=== PATIENT | male | born 1965 | race Caucasian/White ===

== ENCOUNTER 2020-08-05 05:44 | Inpatient (IN) ==
--- NOTE | 2020-07-19 12:06 | PAT Medication Instructions ---
Medication Instructions Date of Service July 19, 2020 Home Medications cholecalciferol (vitamin D3) [Vitamin D3] 25 mcg PO QAM empagliflozin [Jardiance] 25 mg PO QAM fluticasone propionate 1 spray INTRANASAL BID PRN losartan 25 mg PO QAM semaglutide [Ozempic] 1 mg SUBCUT WK tamsulosin 0.4 mg PO BID testosterone cypionate 200 mg IM DIRECTED Continue as directed testosterone cypionate 200 mg IM DIRECTED (unless surgeon directs otherwise) semaglutide [Ozempic] 1 mg SUBCUT WK (just do not take on morning of surgery) DO NOT take the morning of surgery cholecalciferol (vitamin D3) [Vitamin D3] 25 mcg PO QAM empagliflozin [Jardiance] 25 mg PO QAM losartan 25 mg PO QAM Take morning of surgery With a small sip of water, OTHERWISE NOTHING TO EAT OR DRINK AFTER MIDNIGHT: fluticasone propionate 1 spray INTRANASAL BID PRN (if needed) tamsulosin 0.4 mg PO BID Take evening before surgery fluticasone propionate 1 spray INTRANASAL BID PRN (if needed) tamsulosin 0.4 mg PO BID Other Notes If you have any questions please call us at [phone] or [phone] or [phone] or [phone]
--- NOTE | 2020-07-21 10:50 | Anesthesiology Consultation ---
Date of Service July 21, 2020 Assessment & Plan (1) Encounter for pre-operative examination: Chart Review Chart Review: Acceptable Risk for Surgery (pending possible cardiac testing and preop Covid testing results ) and Patient seen in Pre Admission Testing Attempting to get possible cardiac testing- faxed for stress test, ECHO at [facility] appt - Check BSG AM DOS Per [facility] appointment 07/21/2020, patient denies any recent travel. No known Covid infection in the past 90 days. No known Covid positive contacts or Covid related symptoms. Preop Covid testing 08/03/20= will await results. Educated on importance of self quarantining, social distancing and wearing mask in public both for the patient and household contacts.Pt fully vaccinated- Moderna. Teaching & Discussion Pre-Anesthesia Teaching/Discussion Notes: Instructed NPO after midnight before surgery,except medications with 15 cc of water. Medication instructions provided according to the [facility] guidelines. History Surgery Operation Date: 08/05/20 10:05 Proposed Procedures p L4-L5 and L6-S1 Decompression Fusion, L5-S1 Hardware Removal, *Spinal Cord Monitoring* - Martinez Mack, Height/Weight Height: 5 ft 11 in Weight: 134.3 kg Allergies Allergy/AdvReac Type Severity Reaction Status Date / Time adhesive Allergy Severe Blister Verified 07/05/20 10:08 hydrocodone AdvReac Intermediate Gastrointestinal Verified 07/05/20 10:07 Upset Medications Home Medications Medication Instructions Recorded Confirmed Last Taken cholecalciferol (vitamin D3) 25 mcg PO QAM 07/05/20 07/05/20 Unknown [Vitamin D3] empagliflozin [Jardiance] 25 mg PO QAM 07/05/20 07/05/20 Unknown fluticasone propionate 1 spray INTRANASAL BID PRN 07/05/20 07/05/20 Unknown losartan 25 mg PO QAM 07/05/20 07/05/20 Unknown semaglutide [Ozempic] 1 mg SUBCUT WK 07/05/20 07/05/20 Unknown tamsulosin 0.4 mg PO BID 07/05/20 07/05/20 Unknown testosterone cypionate 200 mg IM DIRECTED 07/05/20 07/05/20 Unknown Past Medical History Medical History BPH (benign prostatic hyperplasia) Degenerative disc disease Diabetes mellitus, type 2 Glucose well controlled Hay fever In the fall Season allergies in the spring as well IBS (irritable bowel syndrome) Diarrhea - stable with probiotic Kidney disease Losartan for this to protect kidneys from damage due to diabetes per pt Osteoarthritis Sleep apnea cpap Slow to wake up after anesthesia Exercise / Class Metabolic Activity II 4-5 Yardwork/Stairs/Walk up hill (one flight of stairs - no chest pain or SOB - does have low back pain ) Past Family History Family History Other Diabetes Past Surgical History Surgical History Fusion of spine cervical x1 ROM WNL > lumbar x1 H/O umbilical hernia repair History of appendectomy History of arthroscopy x2 left knee History of cholecystectomy History of colonoscopy History of esophagogastroduodenoscopy (EGD) History of lumbar laminectomy History of repair of hiatal hernia x2 History of repair of rotator cuff bilat History of tonsillectomy Hx of endoscopic sinus surgery S/P uvulopalatopharyngoplasty Past Anesthesia History No Hx of Anesthesia Complications (with exception to one episode of slow to wake with lumbar laminectomy - no hx of reintbuation or ICU stay ) and No Family Hx of Anesthesia Complications History of PONV No Hx of PONV and No Hx of Motion Sickness Social History Smoking Status: Former smoker Do You Dip or Chew Tobacco: No Smoking End Date: over 20 yrs ago Hx Alcohol Use: Yes Alcohol type: beer alcohol intake frequency: a few times a month Hx Substance Use: No substance use type: does not use Review of Systems Patient denies chest pain, shortness of breath, dyspnea on exertion, reflux, cough, wheezing, palpitations. No hx of seizures, stroke, HI. No hx of blood clots or blood transfusions Physical Exam Vital Signs VITALS BP 116/73 P 78 TEMP 97.9 SP02 96% RESP 16 Constitutional no acute distress ENMT Mouth: no TMJ clicking Thyromental Distance: > or= 3.5 Finger Breadths Mallampati Class: I (smaller airway ) Neck + short neck (significant ), + thick neck (significant ) and + limited neck extension (signfiicant ) Respiratory normal respiratory effort; no respiratory distress Auscultation: lungs clear to auscultation bilaterally; no wheezes Cardiovascular Rate/Rhythm: regular rate and regular rhythm Heart Sounds: no murmur Vessels: no carotid bruit Musculoskeletal Spine: no pain with cervical ROM Extremities: extremities normal to inspection Psychiatric Orientation: alert Testing Laboratory Results 07/21/20 11:15 07/21/20 11:15 PT 10.3 Seconds (9.0-12.0) 07/21/20 11:15 INR 1.0 (0.9-1.1) 07/21/20 11:15 APTT 26.6 Seconds (21.0-31.0) 07/21/20 11:15 Hemoglobin A1c 6.9 % (4.5-5.6) H 07/21/20 11:15 Urine Color Yellow 07/21/20 11:15 Urine Appearance Clear (Clear) 07/21/20 11:15 Urine pH 7.5 (4.5-7.5) 07/21/20 11:15 Ur Specific Slaughters 1.013 (1.000-1.030) 07/21/20 11:15 Urine Protein Negative (Negative) 07/21/20 11:15 Urine Glucose (UA) 3+ (Negative) H 07/21/20 11:15 Urine Ketones Negative (Negative) 07/21/20 11:15 Urine Nitrite Negative (Negative) 07/21/20 11:15 Ur Leukocyte Esterase Negative (Negative) 07/21/20 11:15 Urine WBC (Auto) 1-5 /hpf (0-5) 07/21/20 11:15 Urine RBC (Auto) 0-4 /hpf (0-4) 07/21/20 11:15 U Hyaline Cast (Auto) 0 /lpf (0-5) 07/21/20 11:15 U Epithel Cells (Auto) 0-5 /lpf (0-5) 07/21/20 11:15 Urine Bacteria (Auto) Negative (Negative) 07/21/20 11:15 Blood Type O Positive 07/21/20 11:15 Antibody Screen NEGATIVE 07/21/20 11:15 Electrocardiogram Date: 07/21/20 Findings: + NSR @ (76bpm) Left axis deviation. Chest X-Ray Date: 07/21/20 Findings: + NAD Mild interstitial thickening which is likely chronic.
[2020-07-21 11:51] LABS: Basophils # (auto) 0.07 K/uL (0-0.2); Eosinophils # (auto) 0.42 K/uL (0-0.5); Eosinophils % (auto) 5.7 %; Hematocrit (blood only) 48.9 % (42-52); Hemoglobin 17.6 g/dL (14.0-18.0); Immature Granulocytes # (auto) 0.02 K/uL (0.00-0.02); Immature Granulocytes % (auto) 0.3 %; Lymphocytes # (auto) 2.53 K/uL (1.2-3.4); Lymphocytes % (auto) 34.5 %; Mean Corpuscular Hemoglobin 31.2 pg (25-34); Mean Corpuscular Volume 86.5 fL (80-100); Mean Platelet Volume 11.2 fL (7.4-10.4); Monocytes # (auto) 0.81 K/uL (0.11-0.59); Monocytes % (auto) 11.1 %; Neutrophils # (auto) 3.48 K/uL (1.4-6.5); Neutrophils % (auto) 47.4 %; Platelet Count 214 K/uL (130-400); RDW Coefficient of Variation 13.9 % (11.5-14.5); RDW Standard Deviation 43.8 fL (36.4-46.3); Red Blood Count 5.65 M/uL (4.7-6.1); White Blood Count 7.33 K/uL (4.8-10.8)
--- NOTE | 2020-07-21 11:51 | XRay Report ---
XR chest Pre-admission PA/Lat HISTORY: Neck pain. Preop. COMPARISON: None. FINDINGS: Cervical spinal fusion hardware is noted. The heart is normal in size. No pleural effusions . No pneumothorax. Mild interstitial thickening which is likely chronic. Otherwise, no focal lung con solidations to suggest pneumonia. IMPRESSION: No acute process. ACT 112: Negative or not required by law. Electronically signed by: Yung Lara M.D. 07/21/2020 11:49 AM
[2020-07-21 12:02] LABS: BUN Creatinine Ratio 13.2 (10-20); Calcium 8.8 mg/dl (8.5-10.1); Creatinine Clr Calc Pharmacy 140.8 ml/min; Est GFR (African American) 114.3 ml/min; Est GFR (Non-African American) 98.7 ml/min; Potassium 3.5 mmol/L (3.5-5.1)
[2020-07-21 12:10] LABS: Partial Thromboplastin Time 26.6 Seconds (21.0-31.0); Prothrombin Time 10.3 Seconds (9.0-12.0)
[2020-07-21 12:16] LABS: Appearance Urine Clear (Clear); Bacteria Urine Automated Negative (Negative); Bilirubin Urine Negative (Negative); Blood Urine Trace (Negative); Cast Urine Automated 0 /lpf (0-5); Color Urine Yellow; Epithelial Cell Urine Auto 0-5 /lpf (0-5); Glucose Urine UA 3+ (Negative); Ketones Urine Negative (Negative); Leukocyte Esterase Urine Negative (Negative); Nitrite Urine Negative (Negative); Protein Urine Negative (Negative); RBC Urine Automated 0-4 /hpf (0-4); Specific Gravity Urine 1.013 (1.000-1.030); Urobilinogen Urine Negative (Negative); pH Urine 7.5 (4.5-7.5)
[2020-07-21 12:58] LABS: Estimated Average Glucose 151 mg/dl; Hemoglobin A1C 6.9 % (4.5-5.6)
--- NOTE | 2020-07-21 18:41 | Electrocardiogram Report ---
Test Reason : Blood Pressure : / mmHG Vent. Rate : 076 BPM Atrial Rate : 076 BPM P-R Int : 182 ms QRS Dur : 110 ms QT Int : 408 ms P-R-T Axes : 053 -40 029 degrees QTc Int : 459 ms Normal sinus rhythm Left axis deviation Abnormal ECG When compared with ECG of 08-AUG-2009 16:12, QT has lengthened Confirmed by Aram Vizcarra ([id number]) on 07/21/2020 6:41:05 PM Referred By: Martinez Mack Confirmed By:Jose Vizcarra
[2020-08-05] MEDS ORDERED: LR 15ML/HR IV SCH (06:00)
[2020-08-05] MEDS ORDERED: GABAPENTIN 600 MG DOSE PO SCH (06:00)
[2020-08-05] MEDS ORDERED: ACETAMINOPHEN 500 MG TAB PO SCH (06:00)
[2020-08-05] MEDS ORDERED: CeleBREX 200 MG CAP PO SCH (06:00)
[2020-08-05] MEDS ORDERED: BUPIVACAINE/EPINEPHRINE 0.5% MPF 1:200,000 30 ML VIAL ONE (07:11)
[2020-08-05] MEDS ORDERED: fentaNYL citrate 100 MCG/2 ML VIAL ONE (07:21)
[2020-08-05] MEDS ORDERED: MIDAZOLAM HCL 1 MG/ML 2ML VIAL ONE (07:21)
--- NOTE | 2020-08-05 07:34 | History & Physical Bridge Note ---
Date of Service August 05, 2020 History & Physical Bridge Note I have examined the patient, reviewed the History & Physical and in the interval since the performance of the History & Physical I have noted the following changes of clinical significance: no changes noted
--- NOTE | 2020-08-05 07:35 | History & Physical Report ---
Date of Service August 05, 2020 Assessment & Plan (1) Neurogenic claudication due to lumbar spinal stenosis: Admission and Anticipated Discharge Date Admission Date: L4-L5 decompression fusion, L5-S1 hardware removal History of Present Illness Chief Complaint: Back and leg pain Primary Care Provider: Aram Church DO This is a 55-year-old male presents with chronic persistent back and leg pain. Failing course of nonoperative care is here for surgical invention. Allergies Allergy/AdvReac Type Severity Reaction Status Date / Time adhesive Allergy Severe Blister Verified 08/05/20 06:18 hydrocodone AdvReac Intermediate Gastrointestinal Verified 08/05/20 06:18 Upset Home Medications Medication Instructions Recorded Confirmed Type cholecalciferol (vitamin D3) 25 mcg PO QAM 07/05/20 08/05/20 History [Vitamin D3] empagliflozin [Jardiance] 25 mg PO QAM 07/05/20 08/05/20 History fluticasone propionate 1 spray INTRANASAL BID PRN 07/05/20 08/05/20 History losartan 25 mg PO QAM 07/05/20 08/05/20 History semaglutide [Ozempic] 1 mg SUBCUT WK 07/05/20 08/05/20 History tamsulosin 0.4 mg PO BID 07/05/20 08/05/20 History testosterone cypionate 200 mg IM DIRECTED 07/05/20 08/05/20 History acetaminophen [Tylenol Ex Str 1,000 mg PO Q6H PRN 08/05/20 08/05/20 History Rapid Release] Past Med/Surg History Medical History BPH (benign prostatic hyperplasia) Degenerative disc disease Diabetes mellitus, type 2 Glucose well controlled Hay fever In the fall Season allergies in the spring as well IBS (irritable bowel syndrome) Diarrhea - stable with probiotic Kidney disease Losartan for this to protect kidneys from damage due to diabetes per pt Osteoarthritis Sleep apnea cpap Slow to wake up after anesthesia Surgical History Fusion of spine cervical x1 ROM WNL > lumbar x1 H/O umbilical hernia repair History of appendectomy History of arthroscopy x2 left knee History of cholecystectomy History of colonoscopy History of esophagogastroduodenoscopy (EGD) History of lumbar laminectomy History of repair of hiatal hernia x2 History of repair of rotator cuff bilat History of tonsillectomy Hx of endoscopic sinus surgery S/P uvulopalatopharyngoplasty Family History Other Diabetes Social History Smoking Status: Former smoker Smoking End Date: over 20 yrs ago; Second Hand Exposure: No; Do You Dip or Chew Tobacco: No; Tobacco Cessation Education Requested by Patient: No Hx Alcohol Use: Yes Alcohol type: beer Hx Substance Use: No Preferred Language: Citizen Of [place] Communication Ability: Effective Operations Accountant Required: No Beliefs That Will Affect Care: None Current Living Situation: Spouse Other Information That Helps Us Care for You: No Feels Safe at Home: Yes Safety Concerns: Afraid for Self Assistive Devices: Glasses Physical Exam Physical Exam: Patient is alert and oriented Heart regular in rhythm Lungs clear to auscultation Results & Data ([facility]) Vital Signs (Past 12 Hours) Vital Signs Temp Pulse Resp BP Pulse Ox 08/05/20 06:24 36.8 C 97 H 20 134/80 97
[2020-08-05] MEDS ORDERED: FAMOTIDINE/PF 20 MG/2 ML VIAL IV ONE (07:42)
[2020-08-05] MEDS ORDERED: KETAMINE 50 MG/5 ML SYRINGE ONE (08:17)
[2020-08-05] MEDS ORDERED: HYDROmorphone INJ 2 MG/ML SYR/VIAL ONE (08:28)
[2020-08-05] MEDS ORDERED: HYDROmorphone INJ 1 MG/ML SYRINGE IV PRN ×2 (09:16→12:11)
[2020-08-05] MEDS ORDERED: ATROPINE SULFATE 0.1 MG/ML 10ML SYR IV PRN (09:16)
[2020-08-05] MEDS ORDERED: ONDANSETRON INJ 2 MG/ML 2 ML VIAL IV PRN ×2 (09:16→12:11)
[2020-08-05] MEDS ORDERED: fentaNYL citrate 100 MCG/2 ML VIAL IV PRN (09:16)
[2020-08-05] MEDS ORDERED: ePHEDrine sulfate 50 MG/ML AMP IV PRN (09:16)
[2020-08-05] MEDS ORDERED: PROPOFOL IV EMULSION 10 MG/ML 20 ML VIAL IV ONE (10:10)
[2020-08-05] MEDS ORDERED: SUCCINYLCHOLINE CHLORIDE 20 MG/ML 10 ML VIAL IV ONE (10:10)
[2020-08-05] MEDS ORDERED: ONDANSETRON INJ 2 MG/ML 2 ML VIAL ONE (10:10)
[2020-08-05] MEDS ORDERED: ROCURONIUM BROMIDE 10 MG/ML 5 ML VIAL IV ONE (10:10)
[2020-08-05] MEDS ORDERED: DEXAMETHASONE SOD INJ 4 MG/ML VIAL ONE ×2 (10:10)
[2020-08-05] MEDS ORDERED: LIDOCAINE 2% 2 ML VIAL/AMP(20MG/ML) INFIL ONE (10:10)
[2020-08-05] MEDS ORDERED: FLOSEAL HEMOSTATIC MATRIX 10ML TOP ONE (10:11)
--- NOTE | 2020-08-05 10:24 | Operative Report ---
Post Operative Report Pre & Post Diagnosis Operation Date: 08/05/20 07:45 Pre-Op Diagnosis: Neurogenic Claudication due to Lumbar Spinal Stenosis Morbid obesity Post-Op Diagnosis: Neurogenic Claudication due to Lumbar Spinal Stenosis Morbid obesity I identified the patient and participated in the time-out.: Yes Procedure Operation Date: 08/05/20 07:45 Actual Procedures #1 removal of instrumentation L5-L6. #2 exploration of fusion L5-L6 L6-S1. #3 revision decompression with medial facetectomies and foraminotomies L4-L5. #4 posterior spinal fusion L4-L5. #5 placement posterior instrumentation L4-L5. #6 interbody fusion L4-L5. #7 placement of peek cage 14 x 26 mm at L4-L5. #8 placement locally harvested morselized autograft in the posterior lateral gutters. #9 placement infuse collagen sponge and master graft in the posterior lateral gutters and I factor interbody space. Surgeon Martinez Mack, DO Tallier Igor Miller Estimated Blood Loss 350 Findings See Below The patient is 5 foot 11 inches tall weighing over 133 kg with a BMI of 41. Patient's body habitus did contribute to significant technical difficulty requiring her to place retractors longus instruments in order to perform his procedure. This had at least 50% increase to the operative time. Specimens None Indications This is a 55-year-old male presents with above-mentioned diagnosis after failing course of nonoperative care is here for the above-mentioned procedure. Description of Procedure Patient was met with identified informed consent obtained. Patient was then taken to the operative suite underwent a patient placed in a prone position the Saad table on top of the Jaden frame. All bony prominences well-padded eyes inspected to ensure no external pressure placed upon the. This point the lumbar spine was prepped and draped in a sterile fashion. Sharp dissection with the assistance of Bovie cautery was performed down to and exposing the remaining lamina and transverse processes of L4 and instrumentation at L5 and L6. I then proceeded move the hardware bilaterally explore the fusion mass at L5-L6 L6-S1 noting it to be mature and intact no evidence of motion. Then performed a revision complete facetectomy L4-5 on the with foraminotomies addressing severe neural encroachment. Pedicle screws then placed in L 4 L5 bilaterally with assistance of fluoroscopy the proper sized chalino placed. By the transforaminal approach and left complete discectomy was performed endplates curetted to subcortical being bone and a 14 x 26 mm peek cage filled with I factor tapped in position. The rods were locked in final position bilaterally. The transverse processes of L4 and L5 burred to subcortical bleeding bone. Infuse collagen sponge master graft local autograft was placed in the posterior gutters. 15 round LAVINIA drain inserted. The incision was then closed with 1 Vicryl in the fascia 2-0 Vicryl subcutaneously and 4 Monocryl for final skin closure. Steri- Strip sterile dressings placed. Patient will continue PACU stable condition. Please note spinal cord monitoring was utilized at the procedure no changes noted. An [place] record was present at the entire surgery involved the patient positioning complex portions of the surgery and final skin closure. I attest to the content of the Intraoperative Record and any orders documented therein. Any exceptions are noted below.
--- NOTE | 2020-08-05 10:27 | Fluoroscopy Report ---
FL lumbar spine 2-3V CLINICAL HISTORY: L5-S1 REMOVE HDWARE/L4-S1 DECOMPRESSION/FUSION/INTERBODY COMPARISON STUDY: None. FLUOROSCOPY TIME: 15 second. FINDINGS: 2 fluoroscopic spot images of the lower lumbar spine demonstrate posterior decompression an d fusion at L4-L5 with pedicle screws and rods. Hardware appears intact. Possible S1 transitional michael tebra. However, this is suboptimally assessed on this limited fluoroscopic spot imaging. IMPRESSION: Fluoroscopy provided for posterior decompression fusion at the expected L4-5 level. ACT 112: Negative or not required by law. Electronically signed by: Yung Lara M.D. 08/05/2020 10:25 AM
[2020-08-05] MEDS ORDERED: NALOXONE HCL 0.4 MG/1 ML VIAL/CARP IV PRN (12:11)
[2020-08-05] MEDS ORDERED: ALUMINUM/MAGNESIUM SUSP 30 ML UDC PO PRN (12:11)
[2020-08-05] MEDS ORDERED: traMADol HCL 50 MG TABLET PO PRN (12:11)
[2020-08-05] MEDS ORDERED: diphenhydrAMINE Capsule 25 MG CAP PO PRN (12:11)
[2020-08-05] MEDS ORDERED: DO NOT ADMINISTER FLU VACCINE PRN (12:11)
[2020-08-05] MEDS ORDERED: SOD PHOSPHATE/SOD BIPHOSPHATE ENEMA 132 ML BTL PR PRN (12:11)
[2020-08-05] MEDS ORDERED: hydrOXYzine HCl 25 MG TAB PO PRN (12:11)
[2020-08-05] MEDS ORDERED: ACETAMINOPHEN 500 MG TAB PO PRN (12:11)
[2020-08-05] MEDS ORDERED: LORazepam 0.5 MG TAB PO PRN (12:11)
[2020-08-05] MEDS ORDERED: ONDANSETRON 4 MG OD TAB PO PRN (12:11)
[2020-08-05] MEDS ORDERED: FAMOTIDINE 20 MG TAB PO PRN (12:11)
[2020-08-05] MEDS ORDERED: PROMETHAZINE HCL 12.5 MG in SODIUM CHLORIDE 0.9% 50 ML IV PRN (12:11)
[2020-08-05] MEDS ORDERED: DO NOT ADMINISTER PNEUMOCOCCAL VACCINE PRN (12:11)
[2020-08-05] MEDS ORDERED: FLUTICASONE PROPIONATE NA SPR 16 GM BTL PRN (12:11)
[2020-08-05] MEDS ORDERED: MAGNESIUM HYDROXIDE SUSP 30 ML UDC PO PRN (12:11)
[2020-08-05] MEDS ORDERED: ACETAMINOPHEN HOME PACK 500 MG TABLET PO PRN (12:11)
[2020-08-05] MEDS ORDERED: LORazepam 0.5 MG/1 ML VIAL IV PRN (12:11)
[2020-08-05] MEDS ORDERED: ACETAMINOPHEN 1,000 MG/100 ML VIAL IV PRN (12:11)
[2020-08-05] MEDS ORDERED: METOCLOPRAMIDE HCL INJ 5 MG/ML 2 ML VIAL IV PRN (12:11)
[2020-08-05] MEDS ORDERED: PHARMACY GLYCEMIC MGMT CONSULT PRN (12:18)
[2020-08-05] MEDS: KETOROLAC 30 MG/ML VIAL IV SCH ×3 (12:38→23:07)
[2020-08-05] MEDS ORDERED: GLYCOPYRROLATE 0.2 MG/ML VIAL ONE (12:45)
[2020-08-05] MEDS ORDERED: NEOSTIGMINE METHYLSULFATE 1 MG/ML 10ML VIAL ONE (12:45)
[2020-08-05] MEDS ORDERED: DEXTROSE 50% 50 ML SYRINGE IV PRN (13:00)
[2020-08-05] MEDS ORDERED: LANTUS PER UNIT CHARGE SQ ONE ×2 (13:00→21:00)
[2020-08-05] MEDS ORDERED: CARBOHYDRATES FOR HYPOGLYCEMIA PO PRN (13:00)
[2020-08-05] MEDS ORDERED: GLUCOSE 10 TABS/TUBE PO PRN (13:00)
[2020-08-05] MEDS ORDERED: GLUCOSE 40% GEL 15 GM TUBE PO PRN (13:00)
[2020-08-05] MEDS ORDERED: SODIUM CHLORIDE 0.9% 1000ML 1,000 ML IV SCH (13:00)
[2020-08-05] MEDS ORDERED: GLUCAGON FOR INJ 1 MG VIAL IM PRN (13:00)
--- NOTE | 2020-08-05 13:01 | Pharmacy Report ---
Pharmacy Glycemic Short Note 2 - Date of Service August 05, 2020 - Glycemic Short BSG Results (Last 24 hours): 08/05/20 08/05/20 08/05/20 06:19 10:55 12:14 POC Glucose 120 H 171 H 164 H OUTPATIENT ANTIDIABETIC REGIMEN: * Jardiance 25mg PO QAM * Ozempic 1mg SQ weekly * HbA1c: 6.9% (07/21/20) ASSESSMENT: * Mr Damon is a 55yo diabetic male POD 0 s/p spinal surgery w/ Dr Mack this morning. * It appears as though pt received a dose of IV dexamethasone pre-op, however, unable to confirm d/t lack of documentation on eMAR. * Pt is ordered a diabetic, clear liquid diet post-op. * Will hold outpatient regimen for admission and utilize SQ basal/bolus insulin regimen, which is the recommended regimen for inpatient glycemic control. * Tight glycemic control is crucial for wound healing, so will aim to maintain BSGs <200mg/dL (ideally <150mg/dL) to prevent post-op complications. PLAN FOR INPATIENT GLYCEMIC CONTROL: * Hold outpatient diabetes medications * Basal insulin * Lantus 25 units SQ x1 dose * Lantus x1 dose this evening, if pt is hyperglycemic * Will re-evaluate the need for additional basal insulin tomorrow morning * Bolus insulin * NovoLog per scale ACHS or Q6hrs while NPO * Goal Range: Low 110 mg/dL - High 140 mg/dL * Correction Factor: 25 mg/dL/unit * Nutritional / Prandial insulin per carb ratio of 1 unit per 9 grams CHO consumed PLAN FOR DISCHARGE: * A1c: 6.9% * This indicates adequate glycemic control as an outpt. Expect that pt may resume home regimen on discharge, as long as he does not report having episodes of hypoglycemia.
--- NOTE | 2020-08-05 13:10 | Hospitalist Consultation ---
Date of Consultation August 05, 2020 Assessment & Plan (1) S/P spinal surgery: This is a 55yo M with a PMH of DM II, BPH, sleep apnea on CPAP and other medical problems listed below who is POD#0 s/p revision decompression and posterior spinal fusion L4-L5 by Dr. Mack. POD#0 s/p revision decompression and posterior spinal fusion L4-L5 by Dr. Mack Per ortho for pain control, wound care, anticoagulation and activities Monitor H&H (EBL: 250ml, pre-op hgb 17.6) Continue incentive spirometry, PT/OT when appropriate (2) Diabetes mellitus, type 2: A1c 6.9 Hold home agents SSI while in-patient Glycemic consult placed by primary service BSG AC HS (3) BPH (benign prostatic hyperplasia): Continue tamsulosin (4) Sleep apnea: CPAP HS PCP: Lynnette ([facility]) Dispo: per primary service Patient seen in collaboration with Dr. Donaldson. Please see addendum. Supervising Physician Co-Signing Physician Notes Attending addendum: The patient was seen and examined in medical floor in presence of the He is a status post L4-S1 decompression fusion with insertion of interbody, application of bone morphogenetic protein and spinal cord monitoring Complains to have some pain at the back without any radiation Denies any other symptoms On examination Lying in bed with minimal discomfort Hemodynamically stable Chestclear to auscultate bilaterally HeartS1-S2, regular, no murmur appreciated Abdomenbenign Extremitiesno edema CNSalert, awake and oriented x3. No focal sensory and motor deficit appreciated His admission labs, chest x-ray and EKG reviewed He remains medically stable following lumbar spinal procedure He has history of diabetes type 2, BPH, sleep apnea on CPAP which is reasonably stable right now We will monitor his blood counts. Agree with assessment and plan as outlined above by THELMA Novak DR History of Present Illness Reason for Consultation: post op medical consult Attending Physician: Martinez Mack, History of Present Illness This is a 55yo M with a PMH of DM II, BPH, sleep apnea on CPAP and other medical problems listed below who is POD#0 s/p revision decompression and posterior spinal fusion L4-L5 by Dr. Mack. Feeling well postoperatively. Denies surgical site pain. No pain or paresthesias in bilateral lower extremities. Tolerating diet without issue. Denies any chest pain or shortness of breath. No fever, chills, headache, lightheadedness, nausea, vomiting, abdominal pain, dysuria, diarrhea or constipation. Receives primary care from Dr. Church of [facility]. Allergies Allergy/AdvReac Type Severity Reaction Status Date / Time adhesive Allergy Severe Blister Verified 08/05/20 06:18 hydrocodone AdvReac Intermediate Gastrointestinal Verified 08/05/20 06:18 Upset Home Medications Medication Instructions Recorded Confirmed Type cholecalciferol (vitamin D3) 25 mcg PO QAM 07/05/20 08/05/20 History [Vitamin D3] empagliflozin [Jardiance] 25 mg PO QAM 07/05/20 08/05/20 History fluticasone propionate 1 spray INTRANASAL BID PRN 07/05/20 08/05/20 History losartan 25 mg PO QAM 07/05/20 08/05/20 History semaglutide [Ozempic] 1 mg SUBCUT WK 07/05/20 08/05/20 History tamsulosin 0.4 mg PO BID 07/05/20 08/05/20 History testosterone cypionate 200 mg IM DIRECTED 07/05/20 08/05/20 History acetaminophen [Tylenol Ex Str 1,000 mg PO Q6H PRN 08/05/20 08/05/20 History Rapid Release] Patient History Medical History BPH (benign prostatic hyperplasia) Degenerative disc disease Diabetes mellitus, type 2 IBS (irritable bowel syndrome) Diarrhea - stable with probiotic Kidney disease Losartan for this to protect kidneys from damage due to diabetes per pt Osteoarthritis Sleep apnea cpap Slow to wake up after anesthesia Surgical History Fusion of spine cervical x1 ROM WNL > lumbar x1 H/O umbilical hernia repair History of appendectomy History of arthroscopy x2 left knee History of cholecystectomy History of colonoscopy History of esophagogastroduodenoscopy (EGD) History of lumbar laminectomy History of repair of hiatal hernia x2 History of repair of rotator cuff bilat History of tonsillectomy Hx of endoscopic sinus surgery S/P uvulopalatopharyngoplasty Family History Other Diabetes Social History Smoking Status: Former smoker Smoking End Date: over 20 yrs ago; Second Hand Exposure: No; Do You Dip or Chew Tobacco: No; Tobacco Cessation Education Requested by Patient: No Hx Alcohol Use: Yes Alcohol type: beer Hx Substance Use: No Preferred Language: Kyrgyz Communication Ability: Effective Global Mobility Specialist Required: No Beliefs That Will Affect Care: None Current Living Situation: Spouse Other Information That Helps Us Care for You: No Feels Safe at Home: Yes Safety Concerns: Afraid for Self Assistive Devices: Glasses Review of Systems Review of Systems: At least ten systems reviewed and negative except as noted in the HPI. Physical Exam Physical Exam: General Appearance: WD/WN, vitals as above, NAD, sitting up in bed, pleasant, conversing easily Head: normocephalic, atraumatic Eyes: normal inspection, PERRL, conjunctivae normal, anicteric sclerae ENT: external ear and nose normal, oropharynx normal Neck: normal visual inspection, trachea midline, no thyromegaly Respiratory: normal respiratory effort, lungs clear to auscultation, no wheeze, rales, rhonchi. No accessory muscle use Cardiovascular: regular rate, rhythm, no murmur, normal peripheral pulses, no BLE edema Abdomen/GI: normal bowel sounds, soft, nontender, no hepatosplenomegaly Extremities/Musculoskeletal: + Lumbosacral spinal dressing c/d/i. LAVINIA drain vi sualized. No cyanosis or clubbing, extremities motor strength 5/5 Neurologic: PERRL, CN's II-XI intact bilaterally and moves all extremities Psychiatric: A+Ox3, euthymic affect Skin: no rashes, normal color, warm/dry Results & Data Results & Data ([facility]) Vital Signs (Past 12 Hours) Vital Signs Temp Pulse Pulse Pulse Resp BP BP 08/05/20 12:45 36.4 C L 60 16 109/69 08/05/20 12:15 69 18 109/70 08/05/20 11:40 69 14 115/71 08/05/20 11:30 36.2 C L 66 14 104/61 08/05/20 11:20 79 14 119/70 08/05/20 11:10 88 14 139/77 08/05/20 11:00 63 14 120/75 08/05/20 10:50 84 14 127/90 08/05/20 10:49 36.2 C L 73 20 175/93 H 08/05/20 06:24 36.8 C 97 H 20 134/80 Pulse Ox 08/05/20 12:45 92 08/05/20 12:15 97 08/05/20 11:40 97 08/05/20 11:30 95 08/05/20 11:20 95 08/05/20 11:10 96 08/05/20 11:00 93 08/05/20 10:50 97 08/05/20 10:49 96 08/05/20 06:24 97 Diagnostic Findings Chest X-Ray 07/21/20 10:59 XR chest Pre-admission PA/Lat HISTORY: Neck pain. Preop. COMPARISON: None. FINDINGS: Cervical spinal fusion hardware is noted. The heart is normal in size. No pleural effusions. No pneumothorax. Mild interstitial thickening which is likely chronic. Otherwise, no focal lung consolidations to suggest pneumonia. IMPRESSION: No acute process. ACT 112: Negative or not required by law. Electronically signed by: Yung Lara M.D. 07/21/2020 11:49 AM Lumbar Spine X-Ray 08/05/20 07:45 FL lumbar spine 2-3V CLINICAL HISTORY: L5-S1 REMOVE HDWARE/L4-S1 DECOMPRESSION/FUSION/INTERBODY COMPARISON STUDY: None. FLUOROSCOPY TIME: 15 second. FINDINGS: 2 fluoroscopic spot images of the lower lumbar spine demonstrate posterior decompression and fusion at L4-L5 with pedicle screws and rods. Hardware appears intact. Possible S1 transitional vertebra. However, this is suboptimally assessed on this limited fluoroscopic spot imaging. IMPRESSION: Fluoroscopy provided for posterior decompression fusion at the expected L4-5 level. ACT 112: Negative or not required by law. Electronically signed by: Yung Lara M.D. 08/05/2020 10:25 AM
--- NOTE | 2020-08-05 13:58 | Anesthesiology Progress Note ---
Date of Service August 05, 2020 Anesthesia Post Procedure Vital Signs Vital Signs: Temp Pulse Pulse Pulse Resp BP BP 08/05/20 13:41 87 18 128/89 08/05/20 12:45 36.4 C L 60 16 109/69 08/05/20 12:15 69 18 109/70 08/05/20 11:40 69 14 115/71 08/05/20 11:30 36.2 C L 66 14 104/61 08/05/20 11:20 79 14 119/70 08/05/20 11:10 88 14 139/77 08/05/20 11:00 63 14 120/75 08/05/20 10:50 84 14 127/90 08/05/20 10:49 36.2 C L 73 20 175/93 H 08/05/20 06:24 36.8 C 97 H 20 134/80 Pulse Ox 08/05/20 13:41 93 08/05/20 12:45 92 08/05/20 12:15 97 08/05/20 11:40 97 08/05/20 11:30 95 08/05/20 11:20 95 08/05/20 11:10 96 08/05/20 11:00 93 08/05/20 10:50 97 08/05/20 10:49 96 08/05/20 06:24 97 Pain Intensity Left Leg: Pain Intensity: 5 Transfer of Care Handoff Completed per policy Notes Mental Status: alert / awake / arousable and participated in evaluation Patient Amnestic to Procedure: Yes Nausea / Vomiting: adequately controlled Pain: adequately controlled Airway Patency, RR, SpO2: stable & adequate BP & HR: stable & adequate Hydration State: stable & adequate Anesthetic Complications: no major complications apparent and Pt Satisfied with anesthetic care
[2020-08-05] MEDS: INSULIN ASPART 100 UNITS/ML 3 ML PEN SC SCH ×3 (15:00→21:34)
[2020-08-05] MEDS: HYDROmorphone INJ 0.5 MG/0.5 ML SYR IV PRN ×2 (15:11→21:39)
[2020-08-05] MEDS: ceFAZolin 2000MG 2,000 MG/15 ML SYR IV SCH ×2 (15:50→23:07)
[2020-08-05] MEDS: oxyCODONE HCL IR 5 MG TAB (IMMEDIATE RELEASE) PO PRN (19:31)
[2020-08-05] MEDS: DOCUSATE SODIUM/SENNA 50/8.6MG TAB PO SCH (21:38)
[2020-08-05] MEDS: TAMSULOSIN HCL 0.4 MG CAP PO SCH (21:38)
[2020-08-06] MEDS: POLYETHYLENE (MIRALAX) 17 GM PACK PO SCH ×3 (05:38→17:42)
[2020-08-06] MEDS: KETOROLAC 30 MG/ML VIAL IV SCH (05:38)
[2020-08-06 06:10] LABS: Basophils # (auto) 0.03 K/uL (0-0.2); Basophils % (auto) 0.2 %; Eosinophils # (auto) 0.11 K/uL (0-0.5); Eosinophils % (auto) 0.7 %; Hematocrit (blood only) 42.1 % (42-52); Hemoglobin 14.6 g/dL (14.0-18.0); Immature Granulocytes # (auto) 0.05 K/uL (0.00-0.02); Immature Granulocytes % (auto) 0.3 %; Lymphocytes # (auto) 1.87 K/uL (1.2-3.4); Lymphocytes % (auto) 12.4 %; Mean Corpuscular Hemoglobin 30.7 pg (25-34); Mean Corpuscular Hgb Conc 34.7 g/dL (32-36); Mean Corpuscular Volume 88.4 fL (80-100); Mean Platelet Volume 11.2 fL (7.4-10.4); Monocytes # (auto) 1.95 K/uL (0.11-0.59); Monocytes % (auto) 12.9 %; Neutrophils # (auto) 11.07 K/uL (1.4-6.5); Neutrophils % (auto) 73.5 %; Platelet Count 210 K/uL (130-400); RDW Coefficient of Variation 14.1 % (11.5-14.5); RDW Standard Deviation 46.1 fL (36.4-46.3); Red Blood Count 4.76 M/uL (4.7-6.1); White Blood Count 15.08 K/uL (4.8-10.8)
[2020-08-06 06:47] LABS: Creatinine Clr Calc Pharmacy 127.7 ml/min; Est GFR (Non-African American) 94.9 ml/min; Potassium 3.7 mmol/L (3.5-5.1)
[2020-08-06] MEDS: CHOLECALCIFEROL 1,000 UNITS 25 MCG TAB PO SCH (07:50)
[2020-08-06] MEDS: LOSARTAN POTASSIUM 25 MG TAB PO SCH (07:50)
[2020-08-06] MEDS: TAMSULOSIN HCL 0.4 MG CAP PO SCH ×2 (07:50→20:32)
--- NOTE | 2020-08-06 08:07 | Orthopedic Progress Note ---
Date of Service August 06, 2020 Assessment & Plan (1) Neurogenic claudication due to lumbar spinal stenosis: Patient will continue with pain control. We will discontinue Shearer after physical therapy. Maintain LAVINIA drain. Start physical therapy today. DVT prophylaxis is in the form of teds and SCDs. Anticipate discharge home early next week, possibly Saturday Admission and Anticipated Discharge Date Admission Date: August 05, 2020 Supervising Physician Co-Signing Physician Notes Dr. Martinez Mack Luis Manuel Madera is postoperative day 1 posterior lumbar decompression and instrumented fusion of L4-S1. He has had an uneventful night. Back pain is controlled. Denies radicular leg pain. No other complaints. LAVINIA drain output last shift was 60 cc. H&H this morning are 14.6 and 42.1 respectively. Shearer catheter is intact and draining. Review of Systems Review of Systems: All systems reviewed & are unremarkable except as noted in HPI & below Physical Exam Physical Exam: Patient sitting in a chair in no acute distress Alert and oriented x3 Lumbar dressing is clean dry and intact with functioning LAVINIA drain Shearer catheter intact Motor testing is 5/5 bilateral EHL, dorsiflexion, plantarflexion, quadriceps, hamstrings ISABEL hose intact bilateral lower extremities Constitutional: WD/WN, vitals as above well developed Eyes: normal visual knowles by confrontation ENMT: external ear and nose normal, oropharynx normal Neck: normal visual inspection Respiratory: normal respiratory effort Cardiovascular: Extremities: normal capillary refill Chest (Breasts): Chest: normal inspection of chest Gastrointestinal (Abdomen): Inspection/Auscultation: abdomen normal to inspection Musculoskeletal: no cyanosis or clubbing, extremities motor strength 5/5 Extremities: extremities normal to inspection and strength 5/5 throughout Skin: no rashes, warm and dry Neurologic: normal touch/pain/proprioception and moves all extremities Psychiatric: A+Ox3, euthymic affect Results & Data ([facility]) Vital Signs (Past 12 Hours) Vital Signs Temp Pulse Resp BP Pulse Ox 08/06/20 08:00 36.6 C 69 18 126/77 98 08/06/20 03:00 36.6 C 66 18 100/58 L 94 08/05/20 23:00 36.6 C 83 20 107/59 L 93
[2020-08-06] MEDS: INSULIN ASPART 100 UNITS/ML 3 ML PEN SC SCH ×4 (09:16→21:42)
[2020-08-06] MEDS: oxyCODONE HCL IR 5 MG TAB (IMMEDIATE RELEASE) PO PRN ×2 (12:56→17:49)
--- NOTE | 2020-08-06 17:01 | Hospitalist Progress Note ---
Date of Service August 06, 2020 Assessment & Plan (1) S/P spinal surgery: This is a 55yo M with a PMH of DM II, BPH, sleep apnea on CPAP and other medical problems listed below who is POD#0 s/p revision decompression and posterior spinal fusion L4-L5 by Dr. Mack. S/P day#1 revision decompression and posterior spinal fusion L4-L5 by Dr. Mack No post op complication Continue incentive spirometry PT/OT eval Fall precaution continue monitor h/h (2) Diabetes mellitus, type 2: Most recent A1c 6.9 Continue to hold oral home agents SSI while in-patient Pharmacy on board for glycemic managemnt (3) BPH (benign prostatic hyperplasia): Continue tamsulosin (4) Sleep apnea: CPAP HS PCP: Lynnette ([facility]) Dispo: per primary service Admission and Anticipated Discharge Date Admission Date: August 05, 2020 Subjective Pt was seen and examined for postop follow Lying in bed in bed with no distress Pt said that he is having a lot of pain in his back He said that this pain is mild compare to the pain that he used to have before the surgery He said that he walked around the hallway with no distress Denies any chest pain, palpitation, dizziness and SOB Review of Systems Review of Systems: All systems reviewed & are unremarkable except as noted in Subjective Physical Exam Physical Exam: General- No acute distress Head- atraumatic Eyes- PERRL, EOMI, ENT- oropharynx clear Neck- supple, no JVD Lungs- clear to auscultation Heart- regular rhythm; no murmur Abdomen- normal bowel sounds, soft, nontender Extremities- no calf tenderness Neuro- alert, oriented x 3; PERRL, EOMI; no facial palsy; no dysarthria Skin- warm & dry Results & Data Results & Data ([facility]) Vital Signs (Past 12 Hours) Vital Signs Temp Pulse Resp BP Pulse Ox 08/06/20 15:31 36.6 C 77 16 120/74 95 08/06/20 08:00 36.6 C 69 18 126/77 98
[2020-08-06] MEDS: HYDROmorphone INJ 0.5 MG/0.5 ML SYR IV PRN (20:30)
[2020-08-06] MEDS: DOCUSATE SODIUM/SENNA 50/8.6MG TAB PO SCH (20:32)
[2020-08-07] MEDS: TAMSULOSIN HCL 0.4 MG CAP PO SCH (08:00)
[2020-08-07] MEDS: LOSARTAN POTASSIUM 25 MG TAB PO SCH (08:00)
[2020-08-07] MEDS: CHOLECALCIFEROL 1,000 UNITS 25 MCG TAB PO SCH (08:00)
[2020-08-07] MEDS: oxyCODONE HCL IR 5 MG TAB (IMMEDIATE RELEASE) PO PRN ×2 (08:01→12:53)
[2020-08-07] MEDS: INSULIN ASPART 100 UNITS/ML 3 ML PEN SC SCH ×2 (08:41→12:24)
[2020-08-07 10:08] LABS: Hematocrit (blood only) 44.1 % (42-52); Hemoglobin 15.2 g/dL (14.0-18.0); Mean Corpuscular Hemoglobin 30.8 pg (25-34); Mean Corpuscular Hgb Conc 34.5 g/dL (32-36); Mean Corpuscular Volume 89.3 fL (80-100); Mean Platelet Volume 10.7 fL (7.4-10.4); Platelet Count 203 K/uL (130-400); RDW Coefficient of Variation 14.1 % (11.5-14.5); RDW Standard Deviation 46.2 fL (36.4-46.3); Red Blood Count 4.94 M/uL (4.7-6.1); White Blood Count 10.03 K/uL (4.8-10.8)
[2020-08-07] MEDS ORDERED: bisacodyL 10 MG SUPP PR PRN (10:25)
--- NOTE | 2020-08-07 10:29 | Discharge Summary ---
Date of Service August 07, 2020 Admission HPI Per Admitting Provider This is a 55-year-old male presents with chronic persistent back and leg pain. Failing course of nonoperative care is here for surgical invention. Principal Diagnosis Lumbar spinal stenosis with radiculopathy Discharge Data Allergies Allergy/AdvReac Type Severity Reaction Status Date / Time adhesive Allergy Severe Blister Verified 08/05/20 06:18 hydrocodone AdvReac Intermediate Gastrointestinal Verified 08/05/20 06:18 Upset Consultations 08/05/20 12:11 Consult Hospitalist Routine Procedures Performed Operation Date: 08/05/20 07:45 Actual Procedures p L4-S1 Decompression Fusion with Insertion of Interbody, Application of Bone Morphogenetic Protein, Spinal Cord Monitoring(Not Applicable) - Martinez Mack DO s L5-S1 Hardware Removal,(Not Applicable) - Martinez Mack DO Ordered Studies 08/05/20 07:45 [place] lumbar spine 2-3V Routine Hospital Course (1) Neurogenic claudication due to lumbar spinal stenosis: Patient with lumbar decompression fusion tolerated this well second orthopedic for possibly. Postop day 1 he was up and ambulating progressed to postop day #2. LAVINIA drain decreasing appropriate. Pain well controlled. Excellent strength testing. Subsequent discharge home. Discharge orders instructions from the chart for further review. Total Time Total Time Spent Total Time Spent (In Minutes): 20 minutes Discharge Plan Discharge Items Patient Disposition: Home - Self-Care Reason For Visit: Spinal Stenosis, Lumbar Region without Neurogenic Discharge Diagnosis: Lumbar spinal stenosis with radiculopathy Activity: As commented below Non-emergency contact: Primary Care Provider Call non-emergency contact if: you have any medication questions Follow-up/Referrals: Aram Church DO [Primary Care Provider] - Diet: Regular Addtl Attending Provider Instructions: ACTIVITY RECOMMENDATIONS: SELF CARE INSTRUCTIONS AFTER THORACIC/LUMBAR FUSIONS 1. You may walk to your tolerance. It is good exercise for your legs and back. Expect some back and intermittent leg aches and pains. 2. You may perform "counter-top" level activities (make a sandwich, baljinder with a project, etc.). 3. No bending or lifting of more than 10 pounds or back twisting of any nature (roll like a log when turning in bed). 4. You may ride in a car for 20-30 minutes at a time. No driving until after your first visit with your doctor. 5. Frequent changes of position and restricting sitting to 30 minutes at a time will help limit the amount of back spasms and stiffness you may experience. 6. You may discontinue the use of ambulatory aids (cane, crutches, etc.) once your strength and confidence allow. 7. You may laborer tree tapping the shower and let water strike your incision when you arrive home at least once daily. Do not take a tub bath, sit in a hot tub or go into a swimming pool until after your first recheck in the office. SPECIAL CARE INSTRUCTIONS: VERY IMPORTANT TO READ AND REVIEW A. Your surgical incision has been closed with a cosmetic suture under the skin that will dissolve in about 6 weeks. In 14 days, you can use a pair of clean scissors and cut the suture that is left outside of the skin at the ends of your incision. 1. The small skin tapes can be removed 7 days after surgery if they have not fallen off by that point. 2. You may keep the wound open to air as much as possible to promote healing after post-op day number 5 unless told otherwise by your doctor. 3. If you think the wound looks like it is becoming infected (redness or worsening drainage) and/or you are experiencing fever, chill or worsening back pain and muscle spasms, contact the office so that we may evaluate you as soon as possible. B. Complications are uncommon, but please contact us if you have any signs or symptoms of: 1. wound infection (fever higher than 102.5 degrees F, redness, separation of wound, drainage, or increasing pain from the incision) 2. blood clots in legs (pain, swelling, redness and warmth in legs) 3. urinary tract infection (fever higher than 102.5 degrees F, burning upon urination or increased frequency of urination) 4. nerve problems (inability to walk on your toes or heels, numbness, loss of bowel or bladder control) 5. any other symptoms that concern you C. Please call the office at if you have any concerns or questions about your operation or recovery. D. No smoking! Smoking drastically decreases the chance of a solid fusion. E. Do not take any anti-inflammatory medications (Indocin, Advil, Motrin, Aspirin, Naprosyn, etc.) as these may inhibit the chance of a solid fusion. Tylenol is okay to take for pain. MANAGING PAIN AFTER SPINAL SURGERY 1. Narcotic medication is intended for short-term use and will be provided for surgical pain. Surgical pain usually lasts for a period of 4-6 weeks. Narcotic medication includes Percocet, Vicodin, Darvocet, Tylenol #3 or Lortab. 2. Longer-term pain is more appropriately treated with non-narcotic medication such as Tylenol ES. 3. Muscle spasm is not appropriately treated with narcotics. Muscle relaxers such as Soma, Flexeril or Skelaxin can be used along with Tylenol ES. 4. Remember that we all live with some "aches and pains". This is not unusual or uncommon after an injury or as we get older. a. Back pain is expected and may include muscle spasms for 4 to 6 weeks after surgery. The pain should gradually improve. If the pain worsens for no apparent reason, please contact the office. b. Intermittent leg pain may also be experienced and should not be concerned about unless it worsens for no apparent reason. If so, please contact the office. 5. We will provide appropriate medication within the normal guidelines of their prescribed use. We will also be very cautious and aware of potential abuse and extended duration of patients' medication needs. a. Pain medications are for your comfort and to assist with sleep and rest so that the tissue can heal. They are not provided in order to return to normal activity and should not be used through the day. To do so or worsening pain at night can result from ongoing tissue damage and development of tolerance to the prescribed medicine. 6. Please allow 2-3 days to process refills. Prescriptions will not be mailed but must be picked up at the office. FOLLOW UP VISIT: Keep your scheduled follow-up appointment. Any questions, please call the office at . Pending Studies at Discharge: No Stand-Alone Forms: My [employer], Smoking Cessation Medications and DC Order Prescriptions: New tramadol 50 mg tablet 50 mg PO Q6H PRN (Reason: pain, moderate) Qty: 30 RF: 0 oxycodone 5 mg tablet 5 mg PO Q6H PRN (Reason: pain, severe) Qty: 30 RF: 0 Continued tamsulosin 0.4 mg Capsule 0.4 mg PO BID RF: 0 losartan 25 mg Tablet 25 mg PO QAM RF: 0 fluticasone propionate 50 mcg/actuation [place],Suspension 1 spray INTRANASAL BID PRN (Reason: Allergy Symptoms) RF: 0 cholecalciferol (vitamin D3) [Vitamin D3] 25 mcg (1,000 unit) Tablet 25 mcg PO QAM RF: 0 Jardiance 25 mg Tablet 25 mg PO QAM RF: 0 testosterone cypionate 200 mg/mL Kit 200 mg IM DIRECTED RF: 0 Ozempic 1 mg/dose (2 mg/1.5 mL) Pen Injector 1 mg SUBCUT WK RF: 0 acetaminophen 500 mg Tablet 1,000 mg PO Q6H PRN (Reason: Pain, Moderate) RF: 0 Discharge Orders: Discharge Order (Routine); Ordered 08/07/20 Ordered By: Martinez Archibald/Other Patient Handouts: Managing Type 2 Diabetes, A1C Admission Data Admit Date/Time: 08/05/20 11:00 Attending Provider: Martinez Mack Admit Provider: Martinez Mack Primary Care Provider: Aram Church Other Providers: Ashley Rodriguez ; Sophie Donaldson
--- NOTE | 2020-08-07 12:45 | Hospitalist Progress Note ---
Date of Service August 07, 2020 Assessment & Plan (1) S/P spinal surgery: This is a 55yo M with a PMH of DM II, BPH, sleep apnea on CPAP and other medical problems listed below who is POD#0 s/p revision decompression and posterior spinal fusion L4-L5 by Dr. Mack. S/P day#2 revision decompression and posterior spinal fusion L4-L5 by Dr. Mack No post op complication Continue incentive spirometry PT/OT eval Fall precaution Hgb stable continue monitor h/h (2) Diabetes mellitus, type 2: Most recent A1c 6.9 Continue to hold oral home agents SSI while in-patient Pharmacy on board for glycemic managemnt (3) BPH (benign prostatic hyperplasia): Continue tamsulosin (4) Sleep apnea: CPAP HS PCP: Lynnette ([facility]) Dispo: per primary service Admission and Anticipated Discharge Date Admission Date: August 05, 2020 Subjective Pt was seen and examined for postop follow Sitting in chair with no distress He said that his back pain is much better He said that he walked around the hallway with no distress He is planning to discharge today by ortho Denies any chest pain, palpitation, dizziness and SOB Review of Systems Review of Systems: All systems reviewed & are unremarkable except as noted in Subjective Physical Exam Physical Exam: General- No acute distress Head- atraumatic Eyes- PERRL, EOMI, ENT- oropharynx clear Neck- supple, no JVD Lungs- clear to auscultation Heart- regular rhythm; no murmur Abdomen- normal bowel sounds, soft, nontender Extremities- no calf tenderness Neuro- alert, oriented x 3; PERRL, EOMI; no facial palsy; no dysarthria Skin- warm & dry Results & Data Results & Data ([facility]) Vital Signs (Past 12 Hours) Vital Signs Temp Pulse Resp BP Pulse Ox 08/07/20 12:32 36.8 C 73 20 102/56 L 96 08/07/20 07:49 36.8 C 73 20 102/56 L 96
== END 2020-08-07 14:13 | disposition home or self-care (01) | DRG 454 ==
LOC: ASU 05:44 → 3E 11:00